=== PATIENT | female | born 1975 ===

== ENCOUNTER 2016-09-14 08:18 | Inpatient (IN) ==
--- NOTE | 2016-09-14 09:13 | Ultrasound Report ---
Exam: US OB biophysical profile Date: 09/14/2016 12:00 AM Comparison: 09/08/2016 Indication: Advanced maternal age Findings: Fetus in the vertex presentation with posterior placenta present. heart rate 150 bpm. ARNOLD 4.9 cm breathin movement:2 tone:2 Qualitative amniotic fluid volume:2 Impression: 1. Normal biophysical profile score 8 of 8 however minimal oligohydramnios is suspected 4.9 cm with overall decreased amniotic fluid from 7.6 on the previous exam Ultrasound images were stored and captured PROCEDURE INTERPRETED AT [facility] DEPARTMENT OF RADIOLOGY Final Report Signed by: Dr. Greyson Saucedo
[2016-09-14] MEDS ORDERED: LACTATED RINGERS 500 ML IV PRN (11:24)
[2016-09-14] MEDS ORDERED: MEPERIDINE 50 MG/1 ML VIAL IM PRN (11:24)
[2016-09-14] MEDS ORDERED: ONDANSETRON 4 MG/2 ML VIAL IV PRN (11:24)
[2016-09-14] MEDS ORDERED: DINOPROSTONE VAG GEL 10 MG SYRINGE VAG ONE (11:27)
[2016-09-14 11:43] LABS: Basophils % 0.2 % (0.0-0.8); Eosinophils # 0.1 10*3/uL (0.0-0.87); Eosinophils % 0.7 % (0.00-10.9); Hematocrit 41.3 VOL% (35.7-47.0); Hemoglobin 14.1 GM/DL (12.0-16.0); Immature Granulocytes % 0.3 %; Immature Granulocytes Absolute 0.03 #; Lymphocytes # 1.5 10*3/uL (1.4-4.0); Lymphocytes % 16.8 % (21.3-54.2); Mean Corpuscular HGB Conc 34.1 GM/DL (32-36); Mean Corpuscular Hemoglobin 31 PG (27-34); Mean Corpuscular Volume 91.6 FL (87-102); Mean Platelet Volume 11.3 FL (9.6-12.0); Monocytes # 0.6 10*3/uL (0.11-0.8); Monocytes % 6.6 % (1.7-12.7); Neutrophils # 6.6 10*3/uL (1.4-7.4); Neutrophils % 75.4 % (38.7-73.9); Platelet Count 148 T/CUMM (130-400); Red Blood Count 4.51 MC/CUMM (3.8-5.5); Red Cell Distribution Width 14.3 % (9.3-17.3); White Blood Count 8.8 T/CUMM (4-12)
[2016-09-14] MEDS: LACTATED RINGERS 1,000 ML IV SCH ×2 (12:00→23:01)
[2016-09-14 12:22] LABS: Albumin 2.8 G/DL (3.4-5.0); Bilirubin,Total 0.6 MG/DL (0.2-1.0); Osmolality,Calculated 278.3 MOS/KG (273-304); Potassium 4.4 MMOL/L (3.5-5.1); Total Protein 6.1 G/DL (6.4-8.3); Uric Acid 4.5 MG/DL (2.6-6.0)
--- NOTE | 2016-09-14 13:54 | OB/GYN Progress Note ---
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 Saldana is a 41-year-old female who is a 4 para 3 living 3. Her KISHAN is 09/25/2016. Her estimated gestational age is 38 weeks and 3 days. The patient presents for routine nonstress test due to gestational diabetes and advance maternal age. The patient presents for her nonstress test and a biophysical profile was performed that demonstrated only 4 cm of fluid. The patient was not certain if she had been leaking fluid or not she states that she had had some discharge but she did not think anything of it. Also the tracing demonstrates a category 2 tracing in light of these findings patient will be admitted for induction of labor due to the above. The risk and benefits have been thoroughly discussed with this patient and significant other , plan of care has been discussed with Dr. Parikh and all parties are in agreement with plan. This is the patient's fourth , she has had 3 previous vaginal deliveries and the largest weighed 8 pounds and 10 ounces, she reported no complications with any of her pregnancies. The patient received her care through the [facility] and her was complicated by obesity, gestational diabetes, and advanced maternal age. labs: She is O+, antibody screen is negative, RPR is nonreactive, hepatitis B is negative, HIV is negative, rubella is immune, GBS cultures positive. Review of systems is negative with exception of above. Exam LEARNING DISABILITIES TEACHER - Constitutional Vitals: Vital Signs Temp Pulse Resp BP Pulse Ox 09/14/16 11:29 97.4 F L 75 20 114/62 99 General appearance: no acute distress - Antepartum / Post Antepartum Exam Cervix - Dilatation: 2 cm Effacement: 60% Station: -3 Rupture: Questionable rupture membranes Presentation: Vertex Heart Rate: 150s with minimal variability Breast: bilateral: normal Abdomen obstetrics: Present: bowel sounds normal Vagina: Present: normal moisture Uterus exam: Present: enlarged Anus/Rectum: Present: normal perianal skin - Head Head exam: Present: normal inspection - Respiratory Respiratory exam: Present: clear to auscultation bilaterally - Cardiovascular Cardiovascular exam: Present: regular rate and rhythm - GI/Abdominal GI/Abdominal exam: Present: normal bowel sounds, soft - Extremities Exam Extremities exam: Present: normal inspection - Back Exam Back exam: Present: normal inspection - Neurological Exam Neurological exam: Present: alert, oriented X3 - Psychiatric Psychiatric exam: Present: normal affect, normal mood - Skin Skin exam: Present: normal color, warm Results - Labs CBC & BMP: 09/14/16 11:37 09/14/16 11:37
[2016-09-14] MEDS ORDERED: AMPICILLIN INJ 2,000 MG in SODIUM CHLORIDE 0.9% 100 ML IV ONE (14:00)
[2016-09-14] MEDS ORDERED: LACTATED RINGERS 1,000 ML IV ONE (17:40)
[2016-09-14] MEDS ORDERED: ePHEDrine 50 MG/ML AMP IV PRN (17:40)
[2016-09-14] MEDS ORDERED: CITRIC ACID/SODIUM CITRATE 30 ML UDCUP PO ONE (17:40)
[2016-09-14] MEDS ORDERED: FAMOTIDINE 20 MG/2 ML VIAL IV ONE (17:40)
[2016-09-14] MEDS ORDERED: PROMETHAZINE 25 MG/1 ML VIAL IM ONE (17:41)
[2016-09-14] MEDS ORDERED: hydrOXYzine HCL 25 MG/1 ML VIAL IM PRN (17:41)
[2016-09-14] MEDS ORDERED: diphenhydrAMINE 50 MG/1 ML VIAL IV PRN ×2 (17:41)
[2016-09-14] MEDS: AMPICILLIN INJ 1,000 MG in SODIUM CHLORIDE 0.9% 100 ML IV SCH (18:36)
[2016-09-14] MEDS: fentaNYL 2 MCG/ROPIV 0.2% EPID 150 ML EPIDURAL SCH (19:05)
[2016-09-14] MEDS ORDERED: OXYTOCIN/LR 20 UNIT/1,000 ML BAG IV SCH (19:40)
[2016-09-14 21:10] LABS: Apearance,Urine CLEAR (Clear); Bacteria,Urine Occasional /HPF (Few); Bilirubin,Urine Negative (Negative); Blood, Urine Negative (Negative); Glucose,Urine (UA) Negative (Negative); Ketones,Urine 20 mg/dL (Negative); Mucus,Urine Occasional /LPF (Occasional); Nitrite,Urine Negative (Negative); Protein,Urine Negative; RBC,Urine <1 /HPF (0-4); Urine Color Yellow (Yellow); Urine Specific Gravity 1.014 (1.001-1.035); Urine Urobilinogen < 2.0 EU/DL (0.2-1.0); WBC,Urine <1 /HPF (0-6)
[2016-09-15] MEDS: AMPICILLIN INJ 1,000 MG in SODIUM CHLORIDE 0.9% 100 ML IV SCH ×4 (00:30→11:12)
--- NOTE | 2016-09-15 02:01 | Event Note ---
Delivery note Stage I Admitted at 4 cm dilated Spontaneous rupture movement membranes clear fluid Epidural anesthetic Prostin gel IUPC scalp electrode heart tones category 1 Stage II Delivery of female infant at 1:52 AM Apgars 8 at 1 minute 9 at 5 minutes weight is pending Cord blood and cord gas obtained Stage III Spontaneous liver the placenta 3 cord vessels noted Blood loss less than 250 No lacerations were noted Mother bonding well
[2016-09-15] MEDS ORDERED: IBUPROFEN 800 MG TABLET PO PRN (02:02)
[2016-09-15] MEDS ORDERED: BISACODYL 10 MG SUPP RECTAL PRN (02:02)
[2016-09-15] MEDS ORDERED: OXYTOCIN/LR 20 UNIT/1,000 ML BAG IV ONE (02:02)
[2016-09-15] MEDS ORDERED: WITCH HAZEL PADS 100/JAR TOP PRN (02:02)
[2016-09-15] MEDS ORDERED: LANOLIN 50% CREAM 0.3 OZ TUBE TOP PRN (02:02)
[2016-09-15] MEDS ORDERED: oxyCODONE/ACETAMINOPHEN 5-325 MG TABLET PO PRN ×2 (02:02)
[2016-09-15] MEDS ORDERED: ACETAMINOPHEN 325 MG TABLET PO PRN (02:02)
[2016-09-15] MEDS ORDERED: DIPH/TET/ACEL PERT BOOSTER VACCINE 0.5 ML VIAL IM ONE (02:02)
[2016-09-15] MEDS ORDERED: GLUCAGON 1 MG VIAL IM PRN ×2 (02:02→02:05)
[2016-09-15] MEDS ORDERED: BENZOCAINE 20%/MENTHOL 0.5% SPRAY 56 GM CAN TOP PRN (02:02)
[2016-09-15] MEDS ORDERED: MEASLES/MUMPS/RUBELLA VACCINE 0.5 ML VIAL SUBCUT ONE (02:02)
[2016-09-15] MEDS ORDERED: DEXTROSE 50% 25 GM/50 ML VIAL IV PRN ×2 (02:02→02:05)
[2016-09-15] MEDS ORDERED: RHO(D) IMMUNE GLOBULIN 300 MCG SYRINGE IM ONE (02:02)
[2016-09-15] MEDS ORDERED: ONDANSETRON 4 MG/2 ML VIAL IV PRN (02:02)
[2016-09-15] MEDS ORDERED: HYDROCORTISONE 2.5% RECTAL CREAM 30 GM TUBE TOP PRN (02:02)
[2016-09-15 03:05] LABS: Cord Arterial Blood HCO3 24.9 MMOL/L
[2016-09-15 03:08] LABS: Cord Venous Blood HCO3 23.7 MMOL/L; Cord Venous Blood PCO2 39.4 MMHG; Cord Venous Blood PO2 22.6 MMHG
[2016-09-15 05:53] LABS: Basophils % 0.2 % (0.0-0.8); Eosinophils % 0.3 % (0.00-10.9); Hematocrit 39.9 VOL% (35.7-47.0); Hemoglobin 13.6 GM/DL (12.0-16.0); Immature Granulocytes % 0.4 %; Immature Granulocytes Absolute 0.05 #; Lymphocytes # 1.3 10*3/uL (1.4-4.0); Lymphocytes % 10.5 % (21.3-54.2); Mean Corpuscular HGB Conc 34.1 GM/DL (32-36); Mean Corpuscular Hemoglobin 31 PG (27-34); Mean Corpuscular Volume 90.3 FL (87-102); Mean Platelet Volume 11.2 FL (9.6-12.0); Monocytes # 0.4 10*3/uL (0.11-0.8); Monocytes % 3.5 % (1.7-12.7); Neutrophils # 10.5 10*3/uL (1.4-7.4); Neutrophils % 85.1 % (38.7-73.9); Platelet Count 152 T/CUMM (130-400); Red Blood Count 4.42 MC/CUMM (3.8-5.5); Red Cell Distribution Width 14.3 % (9.3-17.3); White Blood Count 12.3 T/CUMM (4-12)
[2016-09-15] MEDS: INSULIN REGULAR 100 UNIT/ML SUBCUT SCH ×3 (07:00→18:00)
[2016-09-15] MEDS: LACTATED RINGERS 1,000 ML IV SCH (07:00)
--- NOTE | 2016-09-15 07:09 | Anesthesia Post-Op ---
Anesthesia Post OP - Post Ansesthetic Evaluation Patient seen in post op: Yes Resp: within normal limits CV: within normal limits Mental: within normal limits Temp: within normal limits [id number]: within normal limits Nausea and Vomiting: within normal limits Pain: within normal limits
[2016-09-15] MEDS: fentaNYL 2 MCG/ROPIV 0.2% EPID 150 ML EPIDURAL SCH (09:52)
[2016-09-15] MEDS: DOCUSATE SODIUM 100 MG CAPSULE PO SCH ×2 (10:05→21:47)
[2016-09-16] MEDS: INSULIN REGULAR 100 UNIT/ML SUBCUT SCH (00:47)
[2016-09-16 06:52] LABS: Basophils % 0.4 % (0.0-0.8); Eosinophils # 0.1 10*3/uL (0.0-0.87); Eosinophils % 1.4 % (0.00-10.9); Hematocrit 36.8 VOL% (35.7-47.0); Hemoglobin 12.6 GM/DL (12.0-16.0); Immature Granulocytes % 0.4 %; Immature Granulocytes Absolute 0.04 #; Lymphocytes # 1.7 10*3/uL (1.4-4.0); Lymphocytes % 18.2 % (21.3-54.2); Mean Corpuscular HGB Conc 34.2 GM/DL (32-36); Mean Corpuscular Hemoglobin 31 PG (27-34); Mean Corpuscular Volume 90.2 FL (87-102); Mean Platelet Volume 11.2 FL (9.6-12.0); Monocytes # 0.5 10*3/uL (0.11-0.8); Monocytes % 4.8 % (1.7-12.7); Neutrophils # 6.9 10*3/uL (1.4-7.4); Neutrophils % 74.8 % (38.7-73.9); Platelet Count 129 T/CUMM (130-400); Red Blood Count 4.08 MC/CUMM (3.8-5.5); Red Cell Distribution Width 14.3 % (9.3-17.3); White Blood Count 9.3 T/CUMM (4-12)
[2016-09-16] MEDS: DOCUSATE SODIUM 100 MG CAPSULE PO SCH (09:40)
[2016-09-16 11:42] VITALS: BP 119/67
--- NOTE | 2016-09-16 12:03 | Discharge Summary ---
Hospital Course - Hospital Course Hospital Course: 41-year-old female who with a known history of gestational diabetes. Patient's blood sugars may control excellent through the hospitalization. This patient admitted with spontaneous rupture membranes at 4 cm dilated. Subsequent delivered a viable without any complications. Her hospital course has been unremarkable where she required no insulin therapy at this time. Recommending follow-up in our office in 6 weeks and also this patient will continue to monitor her blood sugars twice a day and remain on 1800-calorie diet with increasing her activity level. Specialty Discharge - Follow Up or Referrals Follow up with: Joseph Parikh MD [Physician] - Discharge Plan - Discharge Data Condition at Discharge: Stable Discharge Diet: advance to your usual diet Activity: resume usual activities as tolerated Hygiene: no restrictions Weight Bearing at Discharge: full weight bearing Driving: no restrictions Contact your physician if you experience:: fever over 101, Bleeding - Discharge Medications New Hydrocortisone 2.5% Rectal Cr [Anusol HC Cream] 1 applic TOP QID PRN #1 applic PRN Reason: Hemorrhoids Ibuprofen Tab [Motrin Tab] 800 mg PO Q6H PRN #30 tablet PRN Reason: Pain Moderate (4-7) oxyCODONE/ACETAMINOPHEN 5-325 [Percocet 5-325] 1 tablet PO Q6H PRN #14 tablet PRN Reason: Pain Severe (8-10) No Action No122/Iron/Folic Acid [ Multi Tablet] 1 tablet PO DAILY glyBURIDE [Glyburide] 1 tablet PO BID - Follow Up or Referral Follow Up: Joseph Parikh MD [Physician] - - Forms/Instructions Instructions: Depression (GEN), Perineal Care (DC), Bleeding (DC) Exam - Constitutional Vitals: Period Temp Pulse Resp BP Sys/Munoz Pulse Ox Last 24 Hr 97.5 F-98.7 F 70-84 18-22 119-158/67-89 96-98 Discharge Results Labs on day of discharge: Labs from last 24 hours 09/16/16 09/16/16 09/15/16 06:27 06:06 23:33 WBC 9.3 RBC 4.08 Hgb 12.6 Hct 36.8 MCV 90.2 MCH 31 MCHC 34.2 RDW 14.3 Plt Count 129 L MPV 11.2 Neut % (Auto) 74.8 H Lymph % (Auto) 18.2 L [place] % (Auto) 4.8 Eos % (Auto) 1.4 Baso % (Auto) 0.4 Neut # (Auto) 6.9 Lymph # (Auto) 1.7 [place] # (Auto) 0.5 Eos # (Auto) 0.1 Baso # (Auto) 0.0 Immature Gran % 0.4 Nucleated RBC % 0.0 Immature Gran # 0.04 Nucleated RBCs # 0.00 POC Glucose 92 85 09/15/16 09/15/16 18:18 12:18 WBC RBC Hgb Hct MCV MCH MCHC RDW Plt Count MPV Neut % (Auto) Lymph % (Auto) [place] % (Auto) Eos % (Auto) Baso % (Auto) Neut # (Auto) Lymph # (Auto) [place] # (Auto) Eos # (Auto) Baso # (Auto) Immature Gran % Nucleated RBC % Immature Gran # Nucleated RBCs # POC Glucose 128 H 84 DS: Provider Date of admission: 09/14/16 09:00 Primary care physician: Leeanna Nicolas MD Attending physician on admission: Joseph Parikh MD Consults: 09/14/16 11:24 Consult to Anesthesiology [CONS] Routine Consulting Provider: Reason for Anesthesiology: Epidural Consult Comment: Epidural for pain managment 09/15/16 02:02 Consult to Roaster Helper [CONS] Routine Consult Roaster Helper: Breast Feeding 09/16/16 08:30 Consult to Dietitian [CONS] Routine Reason for Dietitian: Dietary Consult Discharging clinician: Joseph Pairkh MD
--- NOTE | 2016-09-16 12:18 | Pathology Report from [facility] ---
[facility] ACCESSION # : [id number] PATIENT NAME : Osvaldo Lowe ORDERING DR : JOANIE GONZALEZ MD CLINICAL HX: IUP @ 38-4/7 weeks gestation - Gestational diabetes - Advanced maternal age POST-OP DX: Same SPECIMEN INFO: Placenta GROSS DESCRIPTION: Received fresh labeled with the patients name and consists of a 436 gram placenta which measures 18.5 x 14.0 x 2.5 cm. membranes are translucent with meconium staining noted. The umbilical cord measures 20.5 cm, contains three vessels and is inserted near the placental margin. The surface is blue-love and intact. The maternal surface displays hemorrhagic, mildly disrupted cotyledons with no abnormalities grossly appreciated upon sectioning. Sections submitted: A membranes and cord, B and maternal surfaces. DIAGNOSIS FOR OSVALDO LOWE: PLACENTA, MEMBRANES, UMBILICAL CORD: Focal placental infarction with dystrophic calcification, moderate intervillous blood. Tri-vessel umbilical cord, marginally inserted. Membranes with acute and chronic inflammation and attached blood. COLLECTED DATE: 09/15/2016 [facility] REPORT DATE: 09/16/2016 ELECTRONICALLY SIGNED BY: Ting Sandhu M.D. 09/16/2016 - 11:47:20 [facility]
== END 2016-09-16 16:45 | disposition home or self-care (01) | DRG 775 ==
LOC: N.LDOUT 08:18 → N.LD 08:59 → N.OB 09-15 12:00
PROVIDERS: ADMIT Obstetrics & Gynecology; ATTEND Obstetrics & Gynecology